=== PATIENT | male | born 1940 | race Caucasian/White ===

== ENCOUNTER 2021-05-07 11:47 | Observation (INO) | payer MEDICARE, SELFPAY ==
[2021-05-07] VITALS (12 sets, daily range): BP systolic 111–147; BP diastolic 49–62; PULSE 61–111; RESP 12–18; TEMP 36.5–36.8; O2SAT 93–99; BMI 28.3
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
--- NOTE | ~2021-05-07 | XR_ITS ---
EXAMINATION: XR chest 2V DATE: 05/07/2021 13:43 INDICATION: Altered mental status. TECHNIQUE: Frontal and lateral views of the chest were obtained. COMPARISON: None. FINDINGS: The chest demonstrates clear lungs without pneumonia, pleural effusion, or pneumothorax. Th e heart size is normal. IMPRESSION: 1. No acute cardiopulmonary disease. Reviewed, dictated and finalized at location A.
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
--- NOTE | 2021-05-07 11:50 | ECG_ITS ---
Measurements Intervals [place] Rate: 60 P: 35 MA: 220 QRS: -28 QRSD: 133 T: 59 QT: 399 QTc: 401 Interpretive Statements SINUS RHYTHM WITH FIRST DEGREE AV BLOCK INTRAVENTRICULAR CONDUCTION DELAY ANTEROSEPTAL INFARCT, AGE INDETERMINATE BASELINE ARTIFACT- I, II, III, AVR, AVF, V1, V3-V6 ABNORMAL ECG Electronically Signed On 05-07-2021 15:17:14 CDT by Lit Degroot D.O.
[2021-05-07 12:07] LABS: Basophils Percent Auto 0.4 % (0.2-1.2); Eosinophils Absolute Auto 0.1 K/mm3 (0-0.3); Eosinophils Percent Auto 1.4 % (0-4.4); Hematocrit 41.5 % (42.0-52.0); Hemoglobin 13.6 g/dL (14.0-18.0); Immature Granulocyte Absolute 0.06 K/mm3 (0.00-0.031); Immature Granulocyte Percent A 0.7 % (0-0.5); Immature Platelet Fraction Pct 6.9 % (0.9-11.2); Lymphocytes Absolute Auto 1.16 K/mm3 (0.9-3.2); Lymphocytes Percent Auto 13.9 % (18.3-44.2); Mean Corpuscular HGB Conc 32.8 g/dl (32-36); Mean Corpuscular Hemoglobin 30.3 pg (26-34); Mean Corpuscular Volume 92.4 fl (80-100); Mean Platelet Volume 11.2 fl (7.4-10.4); Monocytes Absolute Auto 0.9 K/mm3 (0.1-0.6); Neutrophils Absolute Auto 6.1 K/mm3 (1.3-6.7); Neutrophils Percent Auto 72.6 % (45.5-73.1); Platelet Count Result 143 k/mm3 (150-375); Red Blood Count 4.49 M/mm3 (4.6-6.20); Red Cell Distribution Width 13.2 % (11.5-14.5); White Blood Count 8.4 K/mm3 (4.5-10.0)
[2021-05-07] MEDS: SODIUM CHLORIDE 0.9% IV 1,000 ML 999 ML IV CONT ×2 (12:17→13:51)
[2021-05-07 12:22] LABS: Add Urine Microscopic? YES; Appearance Urine Cloudy (Clear); Bacteria Urine Trace /hpf; Bilirubin Urine Negative (Negative); Blood Urine Negative (Negative); Color Urine Yellow (Yellow); Glucose Urine UA Negative (Negative); Hyaline Casts Urine 20-29 /lpf; Ketones Urine Negative (Negative); Leukocyte Esterase Ur Negative LEU/UL (Negative); Mucus Urine Rare /lpf; Nitrate Urine Negative (Negative); Protein Urine 1+ mg/dL (Negative); RBC Urine 0-2 /hpf (0-2); Specific Grav Ur 1.016 (1.001-1.035); Squamous Epithelial Cell Urine Occasional /hpf (Few); Urobilinogen Urine Negative mg/dL (<2.0); WBC Urine 0-3 /hpf
[2021-05-07 12:23] LABS: Partial Thromboplastin Time 29.7 SECONDS (22.3-36.8); Prothrombin Time 12.8 Seconds (11.1-14.7)
[2021-05-07 12:26] LABS: Anion Gap 12 mmol/L (8-16); Blood Urea Nitrogen 35 mg/dL (9-20); Calcium 8.9 mg/dL (8.4-10.2); Carbon Dioxide 24 mmol/L (22-30); Chloride 96 mmol/L (98-107); Estimated CRCL calculation 31 ml/min; Estimated Glomerular Filt Rate 45; Glucose 129 mg/dL (75-110); Potassium 4.1 mmol/L (3.4-5.0); Sodium 132 mmol/L (137-145)
[2021-05-07 12:38] LABS: Troponin I < 0.012 ng/mL (0.000-0.034)
[2021-05-07 17:28] LABS: Troponin I < 0.012 ng/mL (0.000-0.034)
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
--- NOTE | 2021-05-07 18:36 | ADMGEN ---
This patient, aJy Hi, was admitted to Medical Room 347-. Patient/family oriented to hospital policies and general routines including ID bracelet, bed and alarms, visiting hours, pain management, procedures, bathroom and other care routines, personal items, smoking policy, room service/diet, and visiting hours. Information on how to activate the Rapid Response Team has been discussed. Patient/Family are encouraged to report perceived risks to care and to ask questions if they do not understand what they are told or what they should do.
[2021-05-07] MEDS: SODIUM CHLORIDE 0.9% IV 1,000 ML 125 ML IV CONT (19:02)
[2021-05-08] VITALS (9 sets, daily range): BP systolic 117–141; BP diastolic 57–90; PULSE 60–86; RESP 16; TEMP 36.9; O2SAT 90
[2021-05-08] MEDS: SODIUM CHLORIDE 2% OP SOLN 15 ML BTL 1 DROP LEFT EYE ×2 (00:21→08:18)
[2021-05-08] MEDS: prednisoLONE ACETATE 1% OPHTH 5 ML 1 DROP LEFT EYE ×2 (00:21→08:18)
[2021-05-08] MEDS: carvediloL 25 MG TABLET PO ×2 (00:22→08:17)
[2021-05-08] MEDS: SODIUM CHLORIDE 0.9% IV 1,000 ML 80 ML IV CONT (04:25)
[2021-05-08 06:09] LABS: Basophils Percent Auto 0.5 % (0.2-1.2); Eosinophils Absolute Auto 0.2 K/mm3 (0-0.3); Eosinophils Percent Auto 2.8 % (0-4.4); Hematocrit 37.1 % (42.0-52.0); Hemoglobin 12.4 g/dL (14.0-18.0); Immature Granulocyte Absolute 0.03 K/mm3 (0.00-0.031); Immature Granulocyte Percent A 0.5 % (0-0.5); Immature Platelet Fraction Pct 5.6 % (0.9-11.2); Lymphocytes Absolute Auto 1.29 K/mm3 (0.9-3.2); Lymphocytes Percent Auto 19.7 % (18.3-44.2); Mean Corpuscular HGB Conc 33.4 g/dl (32-36); Mean Corpuscular Hemoglobin 30.4 pg (26-34); Mean Corpuscular Volume 90.9 fl (80-100); Mean Platelet Volume 10.7 fl (7.4-10.4); Monocytes Absolute Auto 0.7 K/mm3 (0.1-0.6); Monocytes Percent Auto 10.4 % (2.6-8.5); Neutrophils Absolute Auto 4.3 K/mm3 (1.3-6.7); Neutrophils Percent Auto 66.1 % (45.5-73.1); Platelet Count Result 127 k/mm3 (150-375); Red Blood Count 4.08 M/mm3 (4.6-6.20); Red Cell Distribution Width 13.1 % (11.5-14.5); White Blood Count 6.5 K/mm3 (4.5-10.0)
[2021-05-08 06:23] LABS: Magnesium 1.7 mg/dL (1.6-2.3)
[2021-05-08 07:52] LABS: Immature Reticulocyte Fraction 9.5 % (3.0-15.9); Reticulocyte Hemoglobin Conten 34.7 pg (28.2-35.7); Reticulocytes Absolute 0.04 B/L (32.2-175.7)
[2021-05-08] MEDS: amLODIPine BESYLATE 5 MG TABLET 10 MG PO (08:17)
[2021-05-08] MEDS: ASPIRIN 325 MG ENTERIC TABLET PO (08:18)
[2021-05-08] MEDS: allopurinoL 100 MG TABLET PO (08:18)
[2021-05-08 08:19] LABS: Anion Gap 9 mmol/L (8-16); Blood Urea Nitrogen 21 mg/dL (9-20); Calcium 8.2 mg/dL (8.4-10.2); Carbon Dioxide 21 mmol/L (22-30); Chloride 106 mmol/L (98-107); Estimated CRCL calculation 50 ml/min; Estimated Glomerular Filt Rate > 60; Glucose 103 mg/dL (75-110); Potassium 3.9 mmol/L (3.4-5.0); Sodium 136 mmol/L (137-145)
[2021-05-08 09:21] LABS: Folic Acid 11.7 ng/mL (2.76->20)
[2021-05-08 09:53] LABS: Iron 18 ug/dL (49-181)
[2021-05-08 10:02] LABS: Percent Iron Saturation 7 % (20-50)
--- NOTE | 2021-05-08 12:14 | PM.DS ---
DS: Admitting Diagnosis Admitting Diagnosis Admitting Diagnosis: near syncope DS: Discharge Diagnosis Discharge Diagnosis (1) Near syncope: Code(s): R55 - Syncope and collapse Status: Acute (2) Hypertension: Code(s): I10 - Essential (primary) hypertension Status: Acute (3) Dehydration: Code(s): E86.0 - Dehydration Status: Acute (4) History of endarterectomy: Code(s): Z98.890 - Other specified postprocedural states Status: Acute DS: Summary Hospital Course Reason for hospitalization: pre-syncope Hospital Course: This 81-year-old gentleman with a history of hypertension was is in his usual state of health until the day of admission. He was loading his pill bottles when he became lightheaded and leaned over against his . She thinks he was unresponsive for perhaps 2 seconds. He did not fall to the floor past completely out. He did not have any postictal state. He did not become incontinent. He had no shaking movements. He had no focal weakness numbness difficulty swallowing speech disturbance or visual disturbance. He denied any palpitations or chest pain or shortness of breath or diaphoresis. He had never had a similar episode. They noted that when EMS arrived his blood pressure was in the 60s diastolic. They did remember that 2-3 months ago his carvedilol was increased from 12.5-25 mg twice daily. Evaluation included a CT of the brain that showed evidence for old encephalomalacia secondary to no injury during childhood. Chest x-ray was unremarkable. Laboratory cells only very mild anemia with hemoglobin 12.4 in slightly low platelet count of 127. BUN however was 35 and creatinine 1.5. With IV hydration BUN improved to 21 and creatinine to 0.9. His no prior history of kidney disease. Electrocardiogram showed sinus rhythm with first-degree AV block and intraventricular conduction delay. Telemetry was reviewed in detail and showed a premature beats in no more than single it is and no rate lower than 60 beats per minute. There were no dropped beats noted and no tachycardia noted. Rhythm was sinus during the entire stay. BECAUSE OF HIS LOW NORMAL BLOOD PRESSURE AND CONDUCTION DELAYS ON HIS ELECTROCARDIOGRAM AND HIS VOLUME DEPLETION BY LAB BOTH HIS CARVEDILOL AND HIS LISINOPRIL WITH HYDROCHLOROTHIAZIDE DOSES WERE DECREASED NOTED IN THE DISCHARGE MEDICATIONS. Patient and did not have wish to have a repeat carotid doppler as he had one in December at [facility] in [place]. They wish to pursue echocardiography as outpatient. They were willing to do outpatient cardiac monitoring. There were to return to the emergency department should his symptoms recur. They were instructed on avoiding stairs ladders and any other activities that might be dangerous were he to have a 2nd episode. Status at Discharge Functional status at discharge: independent ambulation Overall status at discharge: patient is back to baseline Time Spent with Patient Time attestation: Total time spent providing and/or coordinating discharge services: Time spent: Greater than 30 minutes Exam Narrative: Exam Narrative: General: Well-developed very pleasant elderly male sitting up in bed completing his lunch and in no distress. HEENT: Cranial deformity of the right forehead from previous TBI and surgical repair. Wearing glasses. Right pupil is not reactive and he has mild ectropion of the right eyelid. Lens implant noted in the left eye. Sclerae anicteric. Oral mucosa pink. Dentures in place. Oropharynx clear. Neck: Supple. Healed left carotid endarterectomy scar. No JVD. Respiratory: Lungs are clear to auscultation bilaterally. Cardiovascular: Regular rhythm though he has frequent ectopy. Gastrointestinal: Abdomen is soft, nontender, and nondistended with positive bowel sounds. Skin: Warm and dry. No rash or lesions on limited exam. Extremities: No cyanosis or clubb
== END 2021-05-08 13:30 | disposition home or self-care (01) ==
LOC: ANHED 13:39 → ANH3MED 15:18
PROVIDERS: Physician Assistant; Admitting Provider Internal Medicine; Emergency Provider Emergency Medicine; PCP Internal Medicine; Visit Provider Internal Medicine
DX: R55 Syncope and collapse (principal); I10 Essential (primary) hypertension; E78.5 Hyperlipidemia, unspecified; Z87.891 Personal history of nicotine dependence; E86.0 Dehydration; R79.89 Other specified abnormal findings of blood chemistry
CPT/HCPCS: 36415; 70450; 71046; 80048; 81001; 82607; 82746; 83540; 83550; 83735; 84484; 85025; 85046; 85055; 85610; 85730; 93005; 96360; 96361; 99285; A9270; G0378; J7030

== ENCOUNTER 2022-01-18 00:38 | Day surgery (SDC) | payer MEDICARE, SELFPAY ==
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
[2022-01-18 09:31] VITALS: BP 135/54; PULSE 57; RESP 20; TEMP 36.2; O2SAT 97; BMI 28.3
[2022-01-18] MEDS: LACTATED RINGERS 1,000 ML 150 ML IV CONT (09:42)
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
--- NOTE | 2022-01-18 10:42 | SUR.OPER ---
EGD ENDED 103 COLONOSCOPY STARTED 1041
[2022-01-18 10:58] VITALS: BP 89/46; PULSE 48; RESP 16; O2SAT 97
[2022-01-18 11:08] VITALS: BP 99/54; PULSE 50; RESP 18; O2SAT 99
[2022-01-18 11:18] VITALS: BP 110/51; PULSE 52; RESP 20; O2SAT 98
== END 2022-01-18 11:37 | disposition home or self-care (01) ==
PROVIDERS: PCP Family Medicine; Visit Provider Internal Medicine Gastroenterology
PROC: 0DJ08ZZ Inspection of Upper Intestinal Tract, Via Natural or Artificial Opening Endoscopic (ICD-10-PCS; CPT 43235; principal; 2022-01-18 10:45)
DX: Z12.11 Encounter for screening for malignant neoplasm of colon (principal); K57.30 Diverticulosis of large intestine without perforation or abscess without bleeding; D12.4 Benign neoplasm of descending colon; D12.2 Benign neoplasm of ascending colon; K63.5 Polyp of colon; D50.9 Iron deficiency anemia, unspecified; K29.70 Gastritis, unspecified, without bleeding; K29.80 Duodenitis without bleeding; I10 Essential (primary) hypertension; I25.10 Atherosclerotic heart disease of native coronary artery without angina pectoris; E78.5 Hyperlipidemia, unspecified; M10.9 Gout, unspecified; Z87.820 Personal history of traumatic brain injury; Z87.891 Personal history of nicotine dependence; Z79.82 Long term (current) use of aspirin
CPT/HCPCS: 45385; 43239; 87081; 88305; J2704; J7120

== ENCOUNTER 2024-06-04 14:16 | Outpatient (CLI) | payer MEDICARE, SELFPAY ==
--- NOTE | ~2024-06-04 | CT_ITS ---
CT lumbar spine wo con Ordering provider: Liang Rea History: 84 years Male with . LOW BACK PAIN . Comparison: None. Technique: CT lumbar spine without contrast. Automated exposure control and iterative reconstruction technique were employed. The dose-length product was 622.78 mGy-cm. FINDINGS: VERTEBRAE: Normal height and alignment. No subluxation or visible acute fracture. Degenerative change s of the spine. DISC SPACES: Degenerative disc disease at the level of L5-S1. Multilevel facet joint disease. T12-L1: No stenosis. L1-L2: No stenosis. L2-L3: No stenosis. Mild diffuse disc bulge. L3-L4: No stenosis. Diffuse disc bulge slightly bilateral narrowing of the foramina. . L4-L5: No stenosis. Diffuse disc bulge with bilateral narrowing of the foramina. L5-S1: Moderate spinal canal stenosis secondary to broad based disc bulge, facet arthropathy, and li gamentum flavum hypertrophy. Bilateral narrowing of the foramina with root compression PARASPINOUS SOFT TISSUES: Mild atheromatous disease of the abdominal aorta. Bilateral sacroiliitis. IMPRESSION: No acute osseous abnormality. Multilevel disc bulges with variable degrees of intervertebral foraminal narrowing, spinal canal sten osis and with compression. Reviewed, dictated and finalized at location A. IMPRESSION: No acute osseous abnormality. Multilevel disc bulges with variable degrees of intervertebral foraminal narrow ing, spinal canal stenosis and with compression.
== END 2024-06-04 14:17 | disposition home or self-care (01) ==
PROVIDERS: PCP Family Medicine
DX: M51.36 Other intervertebral disc degeneration, lumbar region (principal); M51.37 Other intervertebral disc degeneration, lumbosacral region
CPT/HCPCS: 72131

== ENCOUNTER 2024-07-31 09:46 | Outpatient (CLI) | payer MEDICARE, SELFPAY ==
--- NOTE | ~2024-07-31 | CT_ITS ---
CTA neck Ordering provider: Arlette Coleman History: . CAD . Comparison: None. Technique: CT angiogram neck was performed following timed intravenous injection of contrast. Thin sl ice axial images and reformatted coronal images were obtained. Three dimensional reformatted images o f the neck were also obtained using a [employer] workstation. Automated exposure control and iterative re construction technique were employed. The dose-length product was 581.05 mGy-cm. FINDINGS: RIGHT CERVICAL CAROTID ARTERY: Severe atheromatous disease of the carotid bulb and proximal internal carotid artery. Percent stenosis per NASCET criteria is 90-95% No carotid dissection. Otherwise, no s ignificant atheromatous disease or stenosis of the cervical carotid system. LEFT CERVICAL CAROTID ARTERY: Mild atheromatous disease of the carotid bulb and proximal internal car otid artery without significant stenosis. Percent stenosis per NASCET criteria is 0%. No carotid dis section. Otherwise, no significant atheromatous disease or stenosis of the cervical carotid system. VISUALIZED BILATERAL INTRACRANIAL CAROTID ARTERIES: Atherosclerotic changes. VERTEBRAL BASILAR SYSTEM: Normal caliber and contour of the basilar artery. Narrowing seen at the lev el of C2 on the left and right vertebral arteries due to kinking. Dominant left vertebral artery. VISUALIZED AORTIC ARCH AND BRANCHING VESSELS: Mild atheromatous disease but no significant stenosis. Emphysematous changes of the lungs. SOFT TISSUES: Normal. CERVICAL SPINE: Age appropriate degenerative changes. 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 Left bipolar pacemaker. IMPRESSION: CTA neck. Percent stenosis per NASCET criteria is 90-95%. Tamiko the nurse of Dr. De Souza was notified with the result of the patient at 3:33 PM on July 31, 2024. Reviewed, dictated and finalized at location A.
[2024-07-31 10:22] LABS: Estimated Glomerular Filt Rate 58
== END 2024-07-31 09:47 | disposition home or self-care (01) ==
PROVIDERS: PCP Family Medicine
DX: I77.9 Disorder of arteries and arterioles, unspecified (principal)
CPT/HCPCS: 70498; Q9967

== ENCOUNTER → 2025-10-28 15:01 | Outpatient (CLI) | payer MEDICARE, SELFPAY ==
--- NOTE | ~2025-10-28 | XR_ITS ---
EXAMINATION: XR chest 2V DATE: 10/28/2025 16:13 INDICATION: Shortness of breath TECHNIQUE: frontal and lateral views of the chest were obtained. COMPARISON: Chest radiograph dated 05/07/2021 FINDINGS: Mild biapical pleural-parenchymal scarring. Opacities in the left lower lung zone which could represent atelectasis or pneumonia. Small left pleural effusion. Several indeterminate 1.2 cm subpleural nodule at the lateral right lower lung zone. No pneumothorax or right-sided pleural effusion. The cardio mediastinal silhouette is normal. Dual lead pacemaker seen with leads projecting over the expected locations of the right atrium and right ventricle. IMPRESSION: 1. Indeterminate 1.2 cm nodule in the right lower lung which could be sequela of granulomatous disease or malignancy. Recommend chest CT for further evaluation. 2. Opacity left lower lung zone which could represent atelectasis and/or pneumonia with small left pleural effusion. Reviewed, dictated and finalized at location A. D DAYCARE WORKER IMPRESSION: 1. Indeterminate 1.2 cm nodule in the right lower lung which could be sequela o f granulomatous disease or malignancy. Recommend chest CT for further evaluatio n. 2. Opacity left lower lung zone which could represent atelectasis and/or pneumo samanta with small left pleural effusion.
--- OUTSIDE RECORDS SUMMARY | 2025-10-28 15:05 | XMS_ITS | Encounter Summary ---
Author Organization [facility] Health Address [address] [place] [address] Care Team Providers Care Capacity Manager Name Role Phone Julius Paredes MD Primary Care Provider [phone] Selvin Prater MD Primary Care Provider [phone] Niels Carlton MD Primary Care Provider Oziel Orosco MD Primary Care Provider [phone] Encounter Details Date Type Department Care Team (Late st Contact Info) Description 06/03/2013 [facility] Outpatient Visit EXTERNAL NON-[place] [address] [address] Social History Tobacco Use Types Packs/Day Years Used Date Smoking Tobacco: Former Smokeless Tobacco: Never Alcohol Use Standard Drinks/Week Comments No 0 (1 standard drink = 0.6 oz pur e alcohol) Sex and Gender Information Value Date Recorded Sex Assigned at Not on file Legal Sex Male 12:52 PM CDT Gender Identity Not on file Sexual Orientation Not on file documented as of this encounter Plan of Treatment Not on file documented as of this encounter Visit Diagnoses Not on filedocumented in this encounter Care Teams Capacity Manager Relationship Specialty Start Date End Date Julius Paredes MD PCP - General Family Medicine 06/02/13 07/06/14 Selvin Prater MD PCP - General Internal Medicine 07/07/14 02/10/18 [place] [address] [place] [address] [address] [place] [phone] PCP - General Internal Medicine 02/11/18 01/19/22 Oziel Orosco MD [address] [place] [address] PCP - General 01/20/22 documented as of this encounter
--- OUTSIDE RECORDS SUMMARY | 2025-10-28 15:05 | XMS_ITS | Clinical Summary ---
Author Organization [facility] Address [address] [place] [address] Care Team Providers Care Director Franchise Sales Name Role Phone Oziel Orosco MD Primary Care Provider [phone] Source Comments [facility],non-[facility] Affiliates and Associated Physician Practices is amultiple site organization consisting of ambulatory clinics and hospital sitesin [place], [place], [place] and [place]. This disclosure is being madepursuant to the Care Everywhere program and may not contain all information available regarding this patient. Last updated 18.[facility] Allergies Active Allergy Reactions Criticality Noted Date Comments Brimonidine Tartrate-Timolol 017 Red and inflammed Medications * Be aware that medications may not be up to date on this document. Alwaysverify current medications with the patient. amLODIPine (NORVASC) 10 MG tablet Active carvedilol (COREG) 12.5 MG tablet Active lisinopril 10 MG TABS 20 mg, hydrochlorothiazide 25 MG TABS 12.5 mg Acti ve DORZOLAMIDE HCL OP A ctive aspirin 325 MG tablet Active indomethacin (INDOCIN) 50 MG capsule Active ALLOPURINOL PO Take 100 mg by mouth once daily Active clobetasol (TEMOVATE) 0.05 % ointment 6 Active dorzolamide-timolol (COSOPT) 22.3-6.8 MG/ML ophthalmic solution 01/24/20 1 6 Active Active Problems Problem Noted Date Diagnosed Date Carotid disease, bilateral 03/07/2018 Family History Medical History Relation Name Comments CAD (Coronary Artery Disease) Brother 2 Stroke Sister 2 Relation Name Status Comments Brother 1 Alive Brother 2 Father Mother Sister 1 Alive Sister 2 Social History Tobacco Use Types Packs/Day Years Used Date Smoking Tobacco: Former Cigarettes Smokeless Tobacco: Never Comments:quit 20yrs. ago Alcohol Use Standard Drinks/Week Comments No 0 (1 standard drink = 0.6 oz pur e alcohol) Sex and Gender Information Value Date Recorded Sex Assigned at Not on file Legal Sex Male 12:52 PM CDT Gender Identity Not on file Sexual Orientation Not on file Last Filed Vital Signs Vital Sign Reading Time Taken Comments Blood Pressure 130/68 04/14/2017 2:30 PM CDT Pulse 66 04/14/2017 2:30 PM CDT Temperature 36.5 C (97.7 F) 04/14/2017 2:30 PM CDT Respiratory Rate 18 04/14/2017 2:30 PM CDT Oxygen Saturation 96% 04/14/2017 2:30 PM CDT Inhaled Oxygen Concentration - - Weight 78.9 kg (174 lb) 03/07/2018 12:07 PM CDT Height 167.6 cm (5' 6) 03/07/2018 12:07 PM CDT Body Mass Index 28.08 03/07/2018 12:07 PM CDT Plan of Treatment Health Maintenance Due Date Last Done Comments DTAP/TDAP/TD VACCINES (1 - Tdap) 1959 PNEUMOCOCCAL VACCINE 50+ (1 of 1 - PCV) 1989 ZOSTER VACCINE (1 of 2) 1989 Respiratory Syncytial Virus (RSV) Vaccine Pt: or over 60 yrs (1 - 1-dose 75+ series) 2014 DEPRESSION SCREENING 10/29/2024 COVID-19 VACCINE (1 - 2024-2 6 season) 2025 INFLUENZA VACCINE (#1) 2025 HEPATITIS B VACCINE Aged Out No longe r eligible based on patient's age to complete this topic HIB VACCINE Aged Out No longer eligi ble based on patient's age to complete this topic HPV VACCINE Aged Out No longer eligi ble based on patient's age to complete this topic MENINGOCOCCAL (Group B) VACC INE SHARED DECISION-MAKING Aged Out No longer eligibl e based on patient's age to complete this topic MENINGOCOCCAL GROUPS A/C/Y/W VACCINE Aged Out No longer eligible b ased on patient's age to complete this topic Insurance COMMERCIAL GENERIC MEDICARE MEDICARE MEDICARE Care Teams Director Franchise Sales Relationship Specialty Start Date End Date Oziel Orosco MD [address] [place] [address] PCP - General 01/20/22
--- OUTSIDE RECORDS SUMMARY | 2025-10-28 15:05 | XMS_ITS | Clinical Summary ---
Author Organization [facility] Address [address] [place] [address] Care Team Providers Care Airport Maintenance Laborer Name Role Phone Unavailable Primary Care Provider Unavailabl e Allergies No known active allergies Medications No known medications Active Problems No known active problems Encounters Date Type Department Care Team Description 09/29/2025 External Device Data STL ABSTRACTION Provider, Abstract 08/21/2025 Telephone [facility] Urology at the [address] [place] [phone] Penny Yusuf PA Imaging Results (Spoke with son about US results. Nothing to do unless pain becomes overly bothersome. Will reach out if they have any other concerns) 08/20/2025 10:52 AM CDT - 08/20/2025 11:59 PM CDT Hospital Encounter [facility] Imaging Services Gage Castillo [facility] [address] [place] [address] Penny Yusuf PA Discharge Disposition: Home or Self Care 08/19/2025 External Device Data STL ABSTRACTION Provider, Abstract 08/19/2025 External Device Data ST[facility] ABSTRACTION Provider, Abstract 08/18/2025 External Device Data STL ABSTRACTION Provider, Abstract 08/11/2025 1:00 PM CDT Office Visit [facility]rology at the [address] [place] [phone] Benign prostatic hyperplasia with urinary frequency (Primary Dx); Testicular pain, right from Last 3 Months Social History Tobacco Use Types Packs/Day Years Used Date Smoking Tobacco: Never Assessed Sex and Gender Information Value Date Recorded Sex Assigned at Not on file Legal Sex Male 3:33 PM CDT Gender Identity Not on file Sexual Orientation Not on file Last Filed Vital Signs Vital Sign Reading Time Taken Comments Blood Pressure - - Pulse - - Temperature - - Respiratory Rate - - Oxygen Saturation - - Inhaled Oxygen Concentration - - Weight 81.6 kg (180 lb) 08/11/2025 1:04 PM CDT Height 170.2 cm (5' 7) 08/11/2025 1:04 PM CDT Body Mass Index 28.19 08/11/2025 1:04 PM CDT Plan of Treatment Health Maintenance Due Date Last Done Comments DTAP/TDAP/TD VACCINES (1 - Tdap) 1959 PNEUMOCOCCAL VACCINE 50+ YEARS (1 of 1 - PCV) 01/03/19 89 ZOSTER VACCINE (1 of 2) 1989 RSV VACCINE (60+ or ) (1 - 1-dose 75+ series) 2014 INFLUENZA VACCINE (#1) 2025 Procedures Procedure Name Priority Date/Time Associated Diagnosis Comments US TESTES W SCROTAL DOPPLER LTD Routine 08/20/2025 11:07 AM CDT Testicular pain, right URINALYSIS MICROSCOPY ONLY Routine 08/11/2025 1:31 PM CDT Benign prostatic hyperplasia with urinary frequency URINE CULTURE Routine 08/11/2025 1:31 PM CDT Benign prostatic hyperplasia with urinary frequency TX LORI POST-VOIDING RESIDUAL URINE&/BLADDER CAP Routine 08/11/2025 1:27 PM CDT Benign prostatic hyperplasia with urinary frequency from Last 3 Months Results * US TESTES W SCROTAL DOPPLER LTD (08/20/2025 11:07 AM CDT) Anatomical Region Laterality Modality Pelvis Ultrasound 08/20/2025 11:0 7 AM CDT Impressions 08/20/2025 5:13 PM CDT IMPRESSION: Right epididymal cysts. Otherwise unremarkable exam. Dictation Location 4 Narrative 08/20/2025 5:13 PM CDT ULTRASOUND TESTICLE W SCROTAL DOPPLER LIMITED 08/20/2025 INDICATION: Right testicular pain. FINDINGS: The testicles are symmetrically unremarkable with symmetric vascular flow. The right testicle measures 3.6 x 2.5 x 2.4 cm. The left testicle measures 3.6 x 1.6 x 2.1 cm. There are several small cysts in the right epididymal head and neck. The largest measures up to 8 mm. The epididymidi are otherwise unremarkable bilaterally. Examination is otherwise unremarkable Procedure Note Gavin Kaur MD - 08/20/2025 ULTRASOUND TESTICLE W SCROTAL DOPPLER LIMITED 08/20/2025 INDICATION: Right testicular pain. FINDINGS: The testicles are symmetrically unremarkable with symmetric vascular flow. The right testicle measures 3.6 x 2.5 x 2.4 cm. The left testicle measures 3.6 x 1.6 x 2.1 cm. There are several small cysts in the right epididymal head and neck. The largest measures up to 8 mm. The epididymidi are otherwise unremarkable bilaterally. Examination is otherwise unremarkable IMPRESSION: Right epididymal cysts. Otherwise unremarkable exam. Dictation Location 4 Penny GAMBOA ORDERABLES Final Re sult * (ABNORMAL) URINALYSIS MICROSCOPY ONLY (08/11/2025 1:31 PM CDT) WBC UA NONE SEEN < OR = 5 /HPF [facility] RBC UA NONE SEEN < OR = 2 /HPF [facility] EPITHELIAL CELLS, URINE NONE SEEN < OR = 5 /HPF [facility] BACTERIA UA NONE SEEN NONE SEEN /HPF [facility] HYALINE CAST 0-5(A) NONE SEEN /LPF [facility] URINE NOTE [facility] Comment: This urine was analyzed for the presence of WBC, RBC, bacteria, casts, and other formed elements. Only those elements seen were reported. Test Performed at: [facility] [address] [place] [id number] Salazar Thi Vo Urine URINE SPECIMEN OBTAINED BY CLEAN CATCH PROCEDURE / Unknown 08/11/2025 1:31 PM CDT 08/12/2025 12:52 AM CDT Penny GAMBOA URINE ORDERABLES Final R esult Performing Organization Address City/[facility]/ZIP Code Phone Number [facility] [phone] [place] [address] [address] [place] [phone] * URINE CULTURE (08/11/2025 1:31 PM CDT) URINE CULTURE SEE NOTE [facility] Comment: CULTURE, URINE, ROUTINE Micro Number: [id number] Test Status: Final Specimen Source: Urine, clean catch Specimen Quality: Adequate Result: No Growth Test Performed at: [place] [address] [address] [place] [id number] EstefanyKrsy Blancas Urine URINE SPECIMEN OBTAINED BY CLEAN CATCH PROCEDURE / Unknown 08/11/2025 1:31 PM CDT 08/12/2025 12:52 AM CDT Penny GAMBOA MICROBIOLOGY - GENERAL O RDERABLES Final Result Performing Organization Address [facility] Phone Number [facility] [phone] [place] [address] [address] [place] [phone] * TX LORI POST-VOIDING RESIDUAL URINE&/BLADDER CAP (08/11/2025 1:27 PM CDT) Narrative [facility] - 08/11/2025 1:27 PM CDT Penny Yusuf PA 08/11/2025 1:28 PM The patient suprapubic area was exposed. Ultrasound jelly was applied and the ultrasound was placed over the bladder. This showed 16 cc residual volume in the bladder. This was done by the MA under my direct supervision. Penny GAMBOA PROCEDURE/MINOR SURGICAL ORDERABLES Final Result Performing Organization Address City/[facility]/ZIP Co de Phone Number [facility] CLIA# [id number] [address] [place] [address] from Last 3 Months Insurance MEDICARE PART A AND B [employer]
--- OUTSIDE RECORDS SUMMARY | 2025-10-28 15:05 | XMS_ITS | Encounter Summary ---
Author Organization [facility] Health Address [address] [place] [address] Care Team Providers Care Melt Room Operator Name Role Phone Selvin Prater MD Primary Care Provider [phone] Niels Carlton MD Primary Care Provider [phone] Oziel Orosco MD Primary Care Provider Encounter Details Date Type Department Care Team (Late st Contact Info) Description 07/07/2014 [facility] Outpatient Visit EXTERNAL NON-[place] [address] [address] Social History Tobacco Use Types Packs/Day Years [...] on filedocumented in this encounter Care Teams Melt Room Operator Relationship Specialty Start Date End Date Selvin Prater MD PCP - General Internal Medicine 07/07/14 02/10/18 Niels Carlton MD [address] [facility] [place] [phone] PCP - General Internal Medicine 02/11/18 01/19/22 Oziel Orosco MD [address] [place] [address] PCP - General 01/20/22 documented as of this encounter
--- OUTSIDE RECORDS SUMMARY | 2025-10-28 15:05 | XMS_ITS | Encounter Summary ---
Author Organization [facility] Health Address [address] [place] [address] Care Team Providers Care Supervisor Hot Dip Plating Name Role Phone Selvin Prater MD Primary Care Provider [phone] Niels Carlton MD Primary Care Provider Oziel Orosco MD Primary Care Provider [phone] Encounter Details Date Type Department Care Team (Late st Contact Info) Description 02/29/2016 [facility] Outpatient Visit [facility] [address] [place] [address] [place] [address] [address] Social History Tobacco Use Types Packs/Day Years [...] on filedocumented in this encounter Care Teams Supervisor Hot Dip Plating Relationship Specialty Start Date End Date Selvin Prater MD PCP - General Internal Medicine 07/07/14 02/10/18 Niels Carlton MD [address] [facility] [address] [place] [phone] PCP - General Internal Medicine 02/11/18 01/19/22 Oziel Orosco MD [address] [facility] [address] [place] [address] PCP - General 01/20/22 documented as of this encounter
== END ==
LOC: EXPTRAD 15:03
PROVIDERS: PCP Family Medicine; Visit Provider Family Medicine
DX: R06.02 Shortness of breath (principal); R91.1 Solitary pulmonary nodule
CPT/HCPCS: 71046